=== PATIENT | female | born 1935 | race Caucasian/White ===

== ENCOUNTER 2016-09-18 20:01 | Inpatient (IN) | payer OTHER, MEDICARE ==
[~2016-09-18] VITALS: Ht 152.4 cm; Wt 71.2 kg
[~2016-09-18 20:01] MED LIST: AMBIEN5 M1 PO; AMITRIPTYLINE H10 M2 PO; ATORVASTATIN CA20 MG PO; AZITHROMYCIN250 MG PO; BENICAR HCT 12.1 TAB PO; BONIVA150 M1 PO; CHILDREN'S ASPI81 M1 PO; CIPRO500 M1 PO; ESZOPICLONE2 MG PO; FLAGYL500 MG PO; METFORMIN500 MG PO; MOBIC7.5 M1 PO; OS-CAL 500 + D1 TAB PO; ROBAXIN-750750 M1 PO; TYLENOL WITH C1 EACH PO; ULTRAM50 M1 PO; VITAMIN B121000 MCG PO; ZOLPIDEM TART5 MG PO
--- NOTE | 2016-09-18 21:37 | ED GI/GU/ABDOMINAL COMPLAINT ---
History of Present Illness General Chief Complaint: Abdominal Pain/Flank Pain Stated Complaint: ABD PAIN, VOMITING, DIARRHEA PER PT Source: patient, family, old records Exam Limitations: no limitations Vital Signs & Intake/Output Vital Signs & Intake/Output Vital Signs Date Time Temp Pulse Resp B/P B/P Pulse O2 O2 Flow FiO2 Mean Ox Delivery Rate 09/18 2242 98.6 88 17 128/68 94 Room Air 09/18 2006 98.8 92 16 130/70 95 Room Air ED Intake and Output 09/19 0000 09/18 1200 Intake Total 1000 Output Total Balance 1000 Intake, IV 1000 Patient 157 lb Weight Weight Reported by Patient Measurement Method Allergies Coded Allergies: NO KNOWN ALLERGIES (10/28/15) Reconcile Medications Amitriptyline HCl 10 MG TABLET 1 TAB PO QHS SLEEP (Reported) Aspirin (Children's Aspirin) 81 MG TAB.CHEW 1 TAB PO DAILY HEART/BLOOD ( Reported) Atorvastatin Calcium 20 MG TABLET 1 TAB PO DAILY CHOLESTEROL (Reported) Calcium Carbonate/Vitamin D3 (Os-Yinka 500+D3 Caplet) (Unknown Strength) TABLET (Unknown Dose) PO BID SUPPLEMENT (Reported) Cyanocobalamin (Vitamin B-12) 1,000 MCG TABLET 2 TAB PO DAILY SUPPLEMENT ( Reported) Gabapentin 300 MG CAPSULE 1 CAP PO TID NERVE PAIN (Reported) Ibandronate Sodium (Boniva) 150 MG TABLET 1 TAB PO Q30D BONES (Reported) on the same date with a full glass of water at least 30 minutes before first food or drink of the day; remain in an upright posi Metformin HCl 500 MG TABLET 1 TAB PO BID DM (Reported) Olmesartan/Hydrochlorothiazide (Benicar Hct 20-12.5 MG Tablet) 20 MG-12.5 MG TABLET 1 TAB PO DAILY BP (Reported) Tramadol HCl (Ultram) 50 MG TABLET 1 TAB PO Q6P PAIN (Reported) Zolpidem Tartrate (Ambien) 5 MG TABLET 1 TAB PO QPM SLEEP (Reported) Triage Note: PT TO ED FOR N/V/D X 2 HOURS. Triage Nurses Notes Reviewed? yes LMP (ages 10-50): post menopausal ? n Is pt currently ? No Onset: Last week Duration: day(s):, constant, continues in ED, getting worse Timing: recent history Quality/Severity: burning, moderate, vomiting Location: epigastric Radiation: no radiation Activities at Onset: none Prior Abdominal Problems: none Past Sexual History: Unobtainable at this time Modifying Factors: Worsens With: eating. Associated Symptoms: abdominal pain, diarrhea, loss of appetite, nausea/vomiting , weakness HPI: 4 days prior to admission patient developed wheezing with nonproductive cough decreased appetite increasing fatigue. 2 hours prior to admission patient developed chills nausea vomiting frequent loose watery stools. There's been no fever chest pain shortness of breath headache dysuria rash bleeding. Past History Travel History Traveled to [place] past 21 day No Medical History Any Pertinent Medical History? see below for history Cardiovascular: hypertension, hyperlipidemia Gastrointestinal: diverticulitis Hepatic: cholelithiasis Endocrine: diabetes History of MRSA: No History of VRE: No History of CDIFF: No Surgical History Surgical History: cholecystectomy Psychosocial History Who do you live with Son Services at Home None What is your primary language Uzbek Tobacco Use: Never used ETOH Use: denies use Illicit Drug Use: denies illicit drug use Family History Family History, If Any: BROTHER FH: diabetes mellitus MOTHER FH: leukemia Hx Contributory? No Review of Systems Review of Systems Constitutional: Reports: see HPI, chills, malaise, weakness. EENTM: Reports: no symptoms. Respiratory: Reports: see HPI, cough, wheezing. Cardiovascular: Reports: no symptoms. GI: Reports: see HPI, abdominal pain, diarrhea, nausea, vomiting. Genitourinary: Reports: no symptoms. Musculoskeletal: Reports: no symptoms. Skin: Reports: no symptoms. Neurological/Psychological: Reports: no symptoms. Hematologic/Endocrine: Reports: no symptoms. Immunologic/Allergic: Reports: no symptoms. All Other Systems: Reviewed and Negative Physical Exam Physical Exam General Appearance: well developed/nourished, alert, awake, anxious, moderate distress, obese Head: atraumatic, normal appearance Eyes: Bilateral: normal appearance, PERRL, EOMI, normal inspection. Ears, Nose, Throat, Mouth: hearing grossly normal, moist mucous membrane Neck: normal inspection, supple, full range of motion, normal alignment Respiratory: chest non-tender, no respiratory distress, quiet respiration, decreased breath sounds Cardiovascular: regular rate/rhythm, normal peripheral pulses, norml femoral pulses equa Peripheral Pulses: 4+ carotid (R), 4+ carotid (L) Gastrointestinal: soft, non-tender, no organomegaly, abnormal bowel sounds Back: normal inspection, normal range of motion Extremities: normal range of motion, no ligament instability Neurologic/Psych: no motor/sensory deficits, awake, alert, oriented x 3, normal gait, normal mood/affect, fashion artist II-XII nml as tested Skin: intact, normal color, warm/dry Core Measures ACS in differential dx? No Severe Sepsis Present: No Septic Shock Present: No Progress Differential Diagnosis: diverticulitis, gastritis, SBO, UTI/pyelo Plan of Care: Orders Procedure Date/time Status Nothing by Mouth 09/19 B Active CBC WITHOUT DIFFERENTIAL 09/19 06 Active BASIC ELECTROLYTES PLUS BUN&CR 09/19 06 Active Regular Diet 09/18 B Complete TRC EVALUATION (GEN) 09/18 2349 Active Pathway - chart 09/18 2349 Active House Staff 09/18 2349 Active RAPID VIRAL INFLUENZA A 09/18 2349 Active CULTURE,STOOL 09/18 2349 Active STREP PNEUMO URINARY ANTIGEN 09/18 2349 Complete LEGIONELLA URINARY ANTIGEN 09/18 2349 Complete LOWER RESPIRATORY CULTURE 09/18 2349 Active C.DIFFICILE 09/18 2349 Active LACTIC ACID 09/18 2344 Active Add-on Test (ER Only) 09/18 2326 Active EKG 09/18 2309 Active Patient Data 09/18 2256 Active Add-on Test (ER Only) 09/18 2248 Active BLOOD CULTURE 09/18 2248 Active CULTURE,URINE 09/18 2225 Active OXYGEN SETUP (GEN) 09/18 221 Active Saline Lock 09/18 221 Active Admit to inpatient 09/18 2216 Active Vital Signs 09/18 221 Active Activity/Ambulation 09/18 221 Active Code Status 09/18 2216 Active TROPONIN LEVEL 09/18 2131 Complete Intake & Output 09/18 210 Active URINALYSIS 09/18 2044 Complete BLOOD CULTURE 09/19 2043 Active LIPASE 09/19 2043 Complete LACTIC ACID 09/19 2043 Complete COMPREHENSIVE METABOLIC PANEL 09/19 2043 Complete CBC WITHOUT DIFFERENTIAL 09/19 2043 Complete EKG 09/18 2004 Active VTE Mechanical Prophylaxis 09/18 UNK Active Vital Signs 09/18 UNK Active Hemoccult 09/18 UNK Active FingerStick- Glucose 09/18 UNK Active Current Medications Sig/Camila Start time Last Medication Dose Stop Time Status Admin Hydrochlorothiazide 12.5 MG DAILY 09/20 1000 AC (Hydrodiuril) Amitriptyline HCl 10 MG AT BEDTIME 09/19 2200 AC (Elavil 10 MG Tablet) Aspirin 81 MG DAILY 09/19 1000 AC (Aspirin) Atorvastatin Calcium 20 MG DAILY 09/19 1000 AC (Lipitor) Azithromycin 500 MG DAILY 09/19 1000 UNVr (Zithromax) Sodium Chloride 250 ML (Normal Saline 0.9%) Ceftriaxone Sodium 1,000 MG DAILY 09/19 1000 UNVr (Rocephin) Losartan Potassium 50 MG DAILY 09/19 1000 AC (Cozaar) Pantoprazole Sodium 40 MG DAILY 09/19 1000 AC (Protonix) Heparin Sodium 5,000 UNIT Q8 09/19 0600 AC (Porcine) Gabapentin 300 MG TID 09/18 2359 AC (Neurontin) Insulin Human Regular 0 Q6 09/18 2359 AC (NovoLIN R) Acetaminophen 650 MG Q6P PRN 09/18 2345 AC (Tylenol) Dextrose/Sodium 1,000 ML ONCE ONE 09/18 2345 AC Chloride 09/19 1304 (D5W-1/2 Normal Saline 1000ML) Ibuprofen 600 MG Q6P PRN 09/18 2345 AC (Motrin) Morphine Sulfate 1 MG Q6P PRN 09/18 2345 AC (Morphine) Ondansetron HCl 4 MG Q6P PRN 09/18 2345 AC (Zofran) Laboratory Tests 09/18/16 2346: Lactic Acid Pending 09/18/16 2309: Troponin I Cancelled 09/18/16 2225: Urine Color YEL, Urine Clarity CLEAR, Urine pH 6.0, Ur Specific [place] 1.015, Urine Protein TRACE H, Urine Ketones NEG, Urine Nitrite NEG, Urine Bilirubin NEG, Urine Urobilinogen 0.2, Ur Leukocyte Esterase NEG, Ur Microscopic SEDIMENT EXAMINED, Ur Epithelial Cells RARE, Urine Hemoglobin NEG, Urine Glucose NEG 09/18/16 2131: Anion Gap 17 H, Estimated GFR 36 L, BUN/Creatinine Ratio 30.0 H, Glucose 160 H, Lactic Acid 2.0, Calcium 8.9, Total Bilirubin 0.5, AST 25, ALT 27, Alkaline Phosphatase 59, Troponin I < 0.01, Total Protein 7.9, Albumin 4.6, Globulin 3.3, Albumin/Globulin Ratio 1.4, Lipase 452 H, CBC w Diff MAN DIFF ORDERED, RBC 3.83 L, MCV 89.7, MCH 30.2, RDW 14.1, MPV 8.2, Gran % 92.1 H, Lymphocytes % 3.2 L, Monocytes % 4.2, Eosinophils % 0.2, Basophils % 0.3, Absolute Granulocytes 6.6 H, Segmented Neutrophils 73, Band Neutrophils 18 H, Absolute Lymphocytes 0.2 L , Lymphocytes 6 L, Monocytes 2, Absolute Monocytes 0.3, Absolute Eosinophils 0, Basophils 1, Absolute Basophils 0, Platelet Estimate ADEQUATE, Normocytic RBCs VERIFIED, Normochromic RBCs VERIFIED, PUBS MCHC 33.7 Microbiology 09/18 2348 URINE ROUT: Legionella Antigen - CAN Cancelled: COMBINED WITH [id number] 09/18 2348 LOWER RESP: Respiratory Culture - ORD 09/18 2348 LOWER RESP: Gram Stain - ORD 09/18 2348 NASOPHARYN: Influenza Virus A & B Rapid Smear - ORD 09/18 2348 STOOL: Clostridium difficile Toxin A & B - ORD 09/18 2348 STOOL: Stool Culture - ORD 09/18 2254 BLOOD: Blood Culture - RECD 09/18 2224 URINE ROUT: Legionella Antigen - COMP 09/18 2224 URINE ROUT: Streptococcus pneumoniae Antigen (M - COMP 09/18 2224 URINE ROUT: Urine Culture - RECD 09/18 2130 BLOOD: Blood Culture - RECD Diagnostic Imaging: Viewed by Me: Radiology Read. Discussed w/RAD: Radiology Read. Radiology Impression: no acute abnormality CXR Impression: right lower lobe infiltrate Initial ED EKG: normal axis, normal intervals, normal p-waves, normal QRS complex, normal sinus rhythm, no ST T wave changes Prior EKG: unchanged Rhythm Strip: normal sinus rhythm Departure Departure Disposition: STILL A PATIENT Condition: Stable Clinical Impression Primary Impression: Pneumonia Qualifiers: Pneumonia type: due to unspecified organism Laterality: right Lung location: lower lobe of lung Qualified Code: J18.1 - Lobar pneumonia, unspecified organism Secondary Impressions: Elevated lipase, Nausea, vomiting, and diarrhea Referrals: SHARMILA NICHOLSON MD (PCP/Family) Departure Forms: Customer Survey General Discharge Information Admission Note Spoke With: SHARMILA NICHOLSON MD Documentation of Exam: Documentation of any treatments & extenuating circumstances including Concerns Regarding Discharge (functional status, medication knowledge or non-compliance, living conditions, etc.) that warrant an admission rather than observation: IV antibiotics IV fluid IV antiemetic advance diet serial lab exam medication adjustment continuing care discharge planning
--- NOTE | 2016-09-18 21:40 | RADIOLOGY REPORT ---
Indication: Nausea vomiting EXAMINATION: 2 views of the abdomen Flat and upright imaging. There is no free air. The bowel pattern is nonobstructing. IMPRESSION: No free air or obstruction. A chest x-rays also ordered on this patient. Recommend patient return for formal chest x-ray
[2016-09-18 21:43] LABS: ABSOLUTE BASOPHIL COUNT 0 /CUMM (0.0-0.2); ABSOLUTE EOSINOPHIL COUNT 0 /CUMM (0.0-0.7); ABSOLUTE GRANULOCYTE CT 6.6 /CUMM (1.4-6.5); ABSOLUTE LYMPH COUNT 0.2 /CUMM (1.2-3.4); ABSOLUTE MONOCYTE COUNT 0.3 /CUMM (0.10-0.60); BASOPHIL % 0.3 % (0.0-2.0); EOSINOPHIL % 0.2 % (0-5); GRANULOCYTE % 92.1 % (42.2-75.2); HEMATOCRIT 34.3 % (37-47); MEAN CORPUSCULAR HGB 30.2 PG (27.0-31.0); MEAN CORPUSCULAR HGB CONC 33.7 G/DL (33.0-37.0); MEAN CORPUSCULAR VOLUME 89.7 FL (81.0-99.0); MEAN PLATELET VOLUME 8.2 FL (7.4-10.4); PLATELET COUNT 221 /CUMM (130-400); RBC DISTRIBUTION WIDTH 14.1 % (11.5-14.5); RED BLOOD CELL CT 3.83 /CUMM (4.20-5.40); WHITE BLOOD CELL COUNT 7.2 /CUMM (4.8-10.8)
--- NOTE | 2016-09-18 21:52 | RADIOLOGY REPORT ---
EXAMINATION: XR CHEST CLINICAL INFORMATION: Wheezing, chills COMPARISON: 04/17/2016 TECHNIQUE: 2 views of the chest were obtained. FINDINGS: Exam demonstrating opacity at the right base.... Density here previously. This may be an acute infiltrate superimposed on chronic change. Left lung is grossly clear. Heart size is normal. IMPRESSION: Vague opacity at the right base may be an infiltrate. Superimposed on chronic change. Follow-up films recommended after treatment to assess for baseline.
[2016-09-18] MEDS ORDERED: ATORVASTATIN CA20 M1 PO (22:01)
[2016-09-18] MEDS ORDERED: VITAMIN B-121000 MC3 PO (22:02)
[2016-09-18] MEDS ORDERED: OS-CAL 500+D31 EAC1 PO (22:02)
[2016-09-18] MEDS ORDERED: METFORMIN HCL500 M3 PO (22:02)
[2016-09-18] MEDS ORDERED: BENICAR HCT 201 EACH PO (22:03)
[2016-09-18] MEDS ORDERED: GABAPENTIN300 M2 PO (22:04)
--- NOTE | 2016-09-18 22:56 | History & Physical ---
GENARO CARCAMO,GEOVANNY 09/18/16 5236: General Information and HPI Source of Information: patient, family Exam Limitations: language barrier History of Present Illness: Ms. Bui is a 81-year-old lady with a PMH significant for NIDDM, CKD, HTN, HLD , and diverticulitis (2010), who presents with abdominal pain with persistent NBNB emesis and watery diarrhea since 4-5PM on the day of admission. She was in her usual state until this afternoon when she was working in the garden when she suddenly developed nausea shortly after lunch. Patient had about 7-8 epsiodes of vomiting in 2 hours. Lunch consisted of chicken soup and toast which was refridgeated for a few days. Multiple family members had the same food but no issues. Per the family at bedside patient also has had a chronic cough productive of white or yellow sputum at baseline with wheezing recently. She was seen by PCP about a week ago and no concerns were noted at that time. Denies any fever, chills, urinary sxs, recent travel/illness/sick contact. [place] she lives with her son and his family. Denies any tobacco/alcohol/illicit drug use. Ambulates without any walking aids and independent with ADLs. FH significant for leukemia in mother. PCP - Dr. Tim GI - Dr. Betancourt Full code. Allergies/Medications Allergies: Coded Allergies: NO KNOWN ALLERGIES (10/28/15) Home Med list Amitriptyline HCl 10 MG TABLET 1 TAB PO QHS SLEEP (Reported) Aspirin (Children's Aspirin) 81 MG TAB.CHEW 1 TAB PO DAILY HEART/BLOOD ( Reported) Atorvastatin Calcium 20 MG TABLET 1 TAB PO DAILY CHOLESTEROL (Reported) Calcium Carbonate/Vitamin D3 (Os-Yinka 500+D3 Caplet) (Unknown Strength) TABLET (Unknown Dose) PO BID SUPPLEMENT (Reported) Cyanocobalamin (Vitamin B-12) 1,000 MCG TABLET 2 TAB PO DAILY SUPPLEMENT ( Reported) Gabapentin 300 MG CAPSULE 1 CAP PO TID NERVE PAIN (Reported) Ibandronate Sodium (Boniva) 150 MG TABLET 1 TAB PO Q30D BONES (Reported) on the same date with a full glass of water at least 30 minutes before first food or drink of the day; remain in an upright posi Metformin HCl 500 MG TABLET 1 TAB PO BID DM (Reported) Olmesartan/Hydrochlorothiazide (Benicar Hct 20-12.5 MG Tablet) 20 MG-12.5 MG TABLET 1 TAB PO DAILY BP (Reported) Tramadol HCl (Ultram) 50 MG TABLET 1 TAB PO Q6P PAIN (Reported) Zolpidem Tartrate (Ambien) 5 MG TABLET 1 TAB PO QPM SLEEP (Reported) Past History Travel History Traveled to [place] past 21 day No Medical History Cardiovascular: hypertension, hyperlipidemia Gastrointestinal: diverticulitis Hepatic: cholelithiasis Endocrine: diabetes History of MRSA: No History of VRE: No History of CDIFF: No Surgical History Surgical History: cholecystectomy Past Family/Social History Family History Relations & Conditions if any BROTHER FH: diabetes mellitus MOTHER FH: leukemia Psychosocial History Services at Home: None ETOH Use: denies use Illicit Drug Use: denies illicit drug use Review of Systems Review of Systems Constitutional: Reports: see HPI. Exam & Diagnostic Data Last 24 Hrs of Vital Signs/I&O Vital Signs Date Time Temp Pulse Resp B/P B/P Pulse O2 O2 Flow FiO2 Mean Ox Delivery Rate 09/18 2242 98.6 88 17 128/68 94 Room Air 09/18 2006 98.8 92 16 130/70 95 Room Air Physical Exam General Appearance Alert, Oriented X3, Cooperative, No Acute Distress Skin No Rashes, No Breakdown, No Significant Lesion HEENT Atraumatic, PERRLA, EOMI, Dry MM Neck Supple, No JVD, No thryomegaly Cardiovascular Regular Rate, Normal S1, Normal S2, Systolic murmurs in the aortic Lungs Wheezing Abdomen Soft, Decreased BS, Diffuse tenderness Neurological Normal Speech, Sensation Intact, Cranial Nerves 3-12 NL Extremities No Clubbing, No Cyanosis, No Edema, Normal Pulses, No Tenderness/ Swelling Vascular Normal Pulses, Pulses Symmetrical Last 24 Hrs of Labs/Facundo: Laboratory Tests 09/18/169: Troponin I Cancelled 09/18/165: Urine Color YEL, Urine Clarity CLEAR, Urine pH 6.0, Ur Specific [place] 1.015, Urine Protein TRACE H, Urine Ketones NEG, Urine Nitrite NEG, Urine Bilirubin NEG, Urine Urobilinogen 0.2, Ur Leukocyte Esterase NEG, Ur Microscopic SEDIMENT EXAMINED, Ur Epithelial Cells RARE, Urine Hemoglobin NEG, Urine Glucose NEG 09/18/16 2131: Anion Gap 17 H, Estimated GFR 36 L, BUN/Creatinine Ratio 30.0 H, Glucose 160 H, Lactic Acid 2.0, Calcium 8.9, Total Bilirubin 0.5, AST 25, ALT 27, Alkaline Phosphatase 59, Troponin I Pending, Total Protein 7.9, Albumin 4.6, Globulin 3.3 , Albumin/Globulin Ratio 1.4, Lipase 452 H, CBC w Diff MAN DIFF ORDERED, RBC 3.83 L, MCV 89.7, MCH 30.2, RDW 14.1, MPV 8.2, Gran % 92.1 H, Lymphocytes % 3.2 L, Monocytes % 4.2, Eosinophils % 0.2, Basophils % 0.3, Absolute Granulocytes 6.6 H, Segmented Neutrophils 73, Band Neutrophils 18 H, Absolute Lymphocytes 0.2 L, Lymphocytes 6 L, Monocytes 2, Absolute Monocytes 0.3, Absolute Eosinophils 0, Basophils 1, Absolute Basophils 0, Platelet Estimate ADEQUATE, Normocytic RBCs VERIFIED, Normochromic RBCs VERIFIED, PUBS MCHC 33.7 Microbiology 09/18 2254 BLOOD: Blood Culture - RECD 09/18 2224 URINE ROUT: Urine Culture - RECD 09/18 2130 BLOOD: Blood Culture - RECD Diagnostic Data EKG Results NSR CXR Results Vague opacity at the right base may be an infiltrate. Superimposed on chronic change. Follow-up films recommended after treatment to assess for baseline. Assessment/Plan Assessment: Ms. Bui is a 81-year-old lady with a PMH significant for DM, HTN, HLD, and acute diverticulitis (2010), who presents with abdominal pain with persistent NBNB emesis and watery diarrhea since 4-5PM on the day of admission. # Abdominal pain with n/v Most likely 2/2 gastroenteritis based on the clinical presentation. AXR shows no free air or obstruction. * Admit to GM service * Vitals per protocol * Keep NPO for now with gentle IV hydration * Nausea control with Zofran or Reglan * CT abdomen/pelvis to r/o inflammatory disease # Acute on CKD Most likely due to dehydration in the setting of profuse emesis * IV resuscitation * Recheck BEP in the morning # Possible PNA CXR shows vague opacity at the right base may be an infiltrate. Superimposed on chronic change. Although patient reports chronic producitve cough she has no signs of SIRS. There is a bandemia w/o leukocytosis however. So far CXR is inconsistent with her clinical presentation and thus we will cont to monitor for now. * Received 1 dose of IV Doxy and CTX in ED * Watch off antibiotics * Keep monitoring for signs of infection # DM * Novolin SSI with accuchecks * Diabetic diet # HTN/HLD * Resume home meds - NPO - Mild pain pathway - DVTppx with SQH - Full code. As Ranked By This Provider Problem List: 1. NIDDM 2. Hypercapnia 3. Opiate or related narcotic overdose 4. Sigmoid diverticulitis 5. Cervical arthritis 6. Neck pain Core Measures/Miscellaneous Acute Coronary Syndrome ACS Diagnosis: No Cerebrovascular Accident CVA/TIA Diagnosis: No Congestive Heart Failure CHF Diagnosis: No Venous Thromboembolism VTE Risk Factors: Age > 40 No [facility] VTE prophylaxis d/t: No contraindications No VTE Pharm Prophylaxis d/t: No contraindications VTE Diagnosis: No VTE Type: NONE VTE Confirmed by (Test): NONE Severe Sepsis Severe Sepsis Present: No Septic Shock Septic Shock Present: No Miscellaneous Documentation Attending Case Discussed With: SHARMILA TIM MD Primary Care Physician: SHARMILA TIM MD Patient sees these Specialists HPI Level of Patient Care: General Medicine JAVIER HANSEN MD 09/18/16 2342: Resident Review Statement Resident Statement: examined this patient, discussed with agriculture intern Other Findings: 81-year-old lady who is medical issues include hypertension, hyperlipidemia, diabetes mellitus, diverticulosis presents to the emergency room with a 10 hour history of nausea vomiting and diarrhea. Patient states that after lunch this afternoon which was around 3 AM she had about 7-8 bouts of nonbloody vomiting after the vomiting resolved she also had a couple bouts of nonbloody diarrhea. She also complains of some abdominal tenderness. States that she has chronic postnasal drip and has been having some yellow sputum for the last week or so. Denies any fevers muscle aches. However does admit to having some chills. Denies any chest pain, shortness of breath. Her vital signs are stable Labs are significant for 18 bands, anion gap of 17, BUN 42, creatinine 1.4, lipase 452 Physical exam reveals vital signs within normal limits, lung exam within normal limits, neuro exam is intact; cardiac exam reveals normal rate and rhythm regular, 3/6 systolic ejection murmur right upper sternal border with mild radiation to the carotids, abdominal exam shows bowel sounds which are present, tenderness to deep palpation diffusely, no organomegaly Abdominal x-ray is negative, chest x-ray shows a vague opacity at the right base which could likely be an infiltrate Assessment- 1. Gastroenteritis with nausea, vomiting and diarrhea my: Infectious versus noninfectious versus recurrence of diverticulitis 2. Positive anion gap 3. Bandemia 4. Elevated lipase, questionable pancreatitis however she has had a cholecystectomy in the past, does not have a significant history of alcohol or any other risk factors 5. Hypertension 6. Hyperlipidemia 7. Diabetes mellitus 8. NATE on CKD Plan- GEN med admission Vitals per protocol Nothing by mouth for now Gentle fluid hydration IV Zofran when necessary for nausea Pain pathway DVT prophylaxis with subcutaneous heparin Nothing by mouth insulin scale Continue other home meds CAT scan of the abdomen and pelvis without contrast Panculture Full code
--- NOTE | 2016-09-19 00:07 | CT SCAN REPORT ---
EXAMINATION: CT ABDOMEN AND PELVIS WITHOUT CONTRAST CLINICAL INFORMATION: History of diverticulosis. Evaluate for diverticulitis versus colitis versus pancreatitis. COMPARISON: CT scan of abdomen and pelvis 10/23/2015. TECHNIQUE: Multidetector volumetric imaging was performed from the superior aspect of the liver through the pubic symphysis. Sagittal and coronal reformatted images were obtained on the technologist's workstation. DLP: 414.19 mGy-cm FINDINGS: LUNG BASES: There is bibasilar subsegmental atelectasis. No pleural or pericardial effusion. The heart is enlarged. LIVER, GALLBLADDER, AND BILIARY TREE: The unenhanced liver attenuation is homogeneous and there is no evidence of a discrete hepatic parenchymal mass. The gallbladder is surgically absent and there are numerous surgical clips within the gallbladder fossa. No evidence of intrahepatic or extrahepatic biliary ductal dilatation. PANCREAS: Unremarkable. SPLEEN: Unremarkable. ADRENAL GLANDS: Unremarkable. KIDNEYS AND URETERS: Kidneys are symmetric in size and there is no abnormal perinephric inflammation or collection. No hydroureteronephrosis. No nephrolithiasis and no abnormal mass or calcifications visualized along the expected course of the right or left ureters. BLADDER: Unremarkable. GASTROINTESTINAL TRACT: There is a small hiatal hernia. The stomach and small bowel are otherwise unremarkable. There is slightly increased attenuation within the mesenteric fat with a few scattered small nonspecific mesenteric lymph nodes for instance best illustrated on axial image 43 of 91 series 2. There is no free intraperitoneal air or fluid. The appendix is normal. Numerous diverticula are visualized primarily within the sigmoid colon. No evidence of acute diverticulitis. ABDOMINAL WALL: No significant hernia is appreciated. LYMPH NODES: No pathologically enlarged mesenteric or retroperitoneal lymph nodes. VASCULAR: Calcified atheromatous plaque is visualized within the abdominal aorta and iliac vessels. The unenhanced inferior vena cava is unremarkable. PELVIC VISCERA: The uterus is surgically absent. No worrisome adnexal mass. OSSEOUS STRUCTURES: There is no worrisome lytic or blastic osseous lesion. There is advanced multilevel degenerative spondylosis of the lumbar spine with loss of intervertebral disc height, sclerotic degenerative endplate changes, and intervertebral vacuum disc phenomenon at multiple levels. Grade 1 anterolisthesis of L5 on S1 related to advanced facet degenerative changes at this level. Grossly no evidence of canal compromised. IMPRESSION: There is regionally increased attenuation within the mesenteric fat which is associated with a few scattered nonspecific mesenteric lymph nodes. 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 Otherwise there is no discrete abdominal finding to provide an expiration for the patient's abdominal pain. No evidence of acute diverticulitis. The pancreas is normal. No free intraperitoneal air or fluid.
[2016-09-19 00:42] VITALS: BP 110/50
[2016-09-19 06:33] VITALS: BP 110/56
--- NOTE | 2016-09-19 07:13 | PN- Housestaff ---
Subjective Follow-up For: Vomiting Subjective: Seen and examined patient. at bedside. Nursing staff present to help with translation. Patient stated that her nausea, vomiting has subsided since being admitted to the hospital. Continues to have some mild diffuse abdominal pain. Denies any diarrhea, fever, chills, shortness of breath. Review of Systems Constitutional: Denies: chills, diaphoresis, fever, malaise, weakness, unexplained weight loss. Respiratory: Denies: cough, hemoptysis, orthopnea, short of breath, sputum production, stridor, wheezing. Gastrointestinal: Denies: abdominal pain, bloating, constipation, diarrhea, distention, bowel incontinence, melena, nausea, bloody stool, changes in stool, vomiting, steatorrhea. Objective Last 24 Hrs of Vital Signs/I&O Vital Signs Date Time Temp Pulse Resp B/P B/P Pulse O2 O2 Flow FiO2 Mean Ox Delivery Rate 09/19 0914 Room Air Room Air 09/19 0912 96 Room Air 09/19 0800 Room Air 09/19 0633 98.5 76 20 110/56 94 Room Air 09/19 0221 Room Air 09/19 0042 99.1 84 18 110/50 91 Room Air 09/18 2243 98.6 88 17 128/68 94 Room Air 09/18 2007 98.8 92 16 130/70 95 Room Air Intake & Output 09/19 1600 09/19 0800 09/19 0000 Intake Total 600 1000 Output Total 275 Balance 325 1000 Intake, IV 600 1000 Output, Urine 275 Patient 157 lb 157 lb Weight Weight Reported by Patient Reported by Patient Measurement Method Physical Exam General Appearance: Alert, Oriented X3, Cooperative, No Acute Distress Cardiovascular: Regular Rate, Normal S1, Normal S2 Lungs: Normal Air Movement Abdomen: Normal Bowel Sounds, Soft, DIFFUSE MILD TENDERNESS TO PALPATION Current Medications: Current Medications Sig/Camila Start time Last Medication Dose Route Stop Time Status Admin Acetaminophen 650 MG Q6P PRN 09/18 2345 AC PO Amitriptyline HCl 10 MG AT BEDTIME 09/19 2199 AC PO Aspirin 81 MG DAILY 09/19 1000 AC 09/19 PO 1019 Atorvastatin Calcium 20 MG DAILY 09/19 1000 AC 09/19 PO 1019 Azithromycin 500 MG 09/19 AC Sodium Chloride 250 ML IV Ceftriaxone Sodium 1,000 MG 09/19 AC IV Ceftriaxone Sodium 0 .STK-MED ONE 09/18 2232 DC .ROUTE Ceftriaxone Sodium 1,000 MG ONCE ONE 09/18 2214 DC 09/18 IV 09/18 221 2311 Dextrose/Sodium 1,000 ML ONCE ONE 09/18 2345 DC 09/19 Chloride IV 09/19 1304 0126 Doxycycline Hyclate 100 MG ONCE ONE 09/18 2214 DC 09/18 Sodium Chloride 100 ML IV 09/18 2320 2311 Famotidine 0 .STK-MED ONE 09/18 2144 DC IV Famotidine 20 MG ONCE ONE 09/18 2044 DC 09/18 IV 09/18 2045 214 Gabapentin 300 MG TID 09/18 2359 AC 09/19 PO 1019 Heparin Sodium 5,000 UNIT Q8 09/19 0600 AC 09/19 (Porcine) SC 1155 Hydrochlorothiazide 12.5 MG DAILY 09/20 1000 AC PO Ibuprofen 600 MG Q6P PRN 09/18 2345 AC PO Insulin Human Regular 4 UNITS .STK-MED ONE 09/19 012 DC IV 09/19 0122 Insulin Human Regular 0 Q6 09/18 2359 AC 09/19 SC 1155 Losartan Potassium 50 MG DAILY 09/19 1000 AC 09/19 PO 1019 Metoclopramide HCl 0 .STK-MED ONE 09/18 2144 DC .ROUTE Metoclopramide HCl 5 MG ONCE ONE 09/18 2044 DC 09/18 IV 09/18 2045 214 Morphine Sulfate 1 MG Q6P PRN 09/18 2344 AC IV Ondansetron HCl 4 MG Q6P PRN 09/18 234 AC IV Pantoprazole Sodium 40 MG DAILY 09/19 1000 AC 09/19 IV 1020 Sodium Chloride 1,000 ML BOLUS ONE 09/18 2044 DC 09/18 IV 09/19 2143 214 Last 24 Hrs of Lab/Facundo Results Last 24 Hrs of Labs/Mics: Laboratory Tests 09/19/16 0620: Anion Gap 12, Estimated GFR 40 L, BUN/Creatinine Ratio 29.2 H, CBC w Diff Pending, RBC 3.10 L, MCV 89.7, MCH 30.1, RDW 13.8, MPV 8.9, Gran % 80.7 H, Lymphocytes % 11.1 L, Monocytes % 6.1, Eosinophils % 1.9, Basophils % 0.2, Absolute Granulocytes 5.0, Absolute Lymphocytes 0.7 L, Absolute Monocytes 0.4, Absolute Eosinophils 0.1, Absolute Basophils 0, PUBS MCHC 33.5 09/18/16 2346: Lactic Acid 1.6 09/18/16 2309: Troponin I Cancelled 09/18/162224: Urine Color YEL, Urine Clarity CLEAR, Urine pH 6.0, Ur Specific [place] 1.015, Urine Protein TRACE H, Urine Ketones NEG, Urine Nitrite NEG, Urine Bilirubin NEG, Urine Urobilinogen 0.2, Ur Leukocyte Esterase NEG, Ur Microscopic SEDIMENT EXAMINED, Ur Epithelial Cells RARE, Urine Hemoglobin NEG, Urine Glucose NEG 09/18/162130: Anion Gap 17 H, Estimated GFR 36 L, BUN/Creatinine Ratio 30.0 H, Glucose 160 H, Lactic Acid 2.0, Calcium 8.9, Total Bilirubin 0.5, AST 25, ALT 27, Alkaline Phosphatase 59, Troponin I < 0.01, Total Protein 7.9, Albumin 4.6, Globulin 3.3, Albumin/Globulin Ratio 1.4, Lipase 452 H, CBC w Diff MAN DIFF ORDERED, RBC 3.83 L, MCV 89.7, MCH 30.2, RDW 14.1, MPV 8.2, Gran % 92.1 H, Lymphocytes % 3.2 L, Monocytes % 4.2, Eosinophils % 0.2, Basophils % 0.3, Absolute Granulocytes 6.6 H, Segmented Neutrophils 73, Band Neutrophils 18 H, Absolute Lymphocytes 0.2 L , Lymphocytes 6 L, Monocytes 2, Absolute Monocytes 0.3, Absolute Eosinophils 0, Basophils 1, Absolute Basophils 0, Platelet Estimate ADEQUATE, Normocytic RBCs VERIFIED, Normochromic RBCs VERIFIED, PUBS MCHC 33.7 Microbiology 09/19 0125 NASOPHARYN: Influenza Virus A & B Rapid Smear - COMP 09/18 2348 URINE ROUT: Legionella Antigen - CAN Cancelled: COMBINED WITH [id number] 09/18 2348 LOWER RESP: Respiratory Culture - COLB 09/18 2348 LOWER RESP: Gram Stain - COLB 09/18 2348 STOOL: Clostridium difficile Toxin A & B - COLB 09/18 2348 STOOL: Stool Culture - COLB 09/18 2254 BLOOD: Blood Culture - RES 09/18 2224 URINE ROUT: Legionella Antigen - COMP 09/18 2224 URINE ROUT: Streptococcus pneumoniae Antigen (M - COMP 09/18 2224 URINE ROUT: Urine Culture - RES 09/18 2130 BLOOD: Blood Culture - RES Assessment/Plan Assessment: 81-year-old woman with a PMH significant for DM, HTN, HLD, and acute diverticulitis (2010), who presents with abdominal pain with emesis and watery diarrhea since 4-5PM on the day of admission. 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 and no evidence of acute diverticulitis or pancreatitis # Abdominal pain with n/v Most likely 2/2 gastroenteritis * Vitals per protocol * Will start on clear liquids advance as tolerated, will DC IV fluids once tolerating diet * Continue IV ceftriaxone consider discontinuing if clinically improved tommorrow * Nausea control with Zofran or Reglan # Acute on CKD Most likely due to dehydration in the setting of profuse emesis * IVF resuscitation * Recheck BEP in the morning # Possible PNA low suspicion for pna, no fevers, increased white count * Received 1 dose of IV Doxy and CTX in ED * Watch off antibiotics * Keep monitoring for signs of infection # DM * Novolin SSI with accuchecks * Diabetic diet # HTN/HLD * Continue hydrochlorothiazide, Cozaar, statin, aspirin Continue home meds of Elavil - Mild pain pathway - DVTppx with SQH - Full code. Problem List: 1. Nausea, vomiting, and diarrhea Pain Ratin Pain Location: abdomen Alt Method for Pain Treatment: Other(free text) Pain Goal: Pain 4 or less Pain Plan: current regimen Tomorrow's Labs & Rationales: cbc/bep
[2016-09-19 08:08] LABS: ABSOLUTE BASOPHIL COUNT 0 /CUMM (0.0-0.2); ABSOLUTE EOSINOPHIL COUNT 0.1 /CUMM (0.0-0.7); ABSOLUTE LYMPH COUNT 0.7 /CUMM (1.2-3.4); ABSOLUTE MONOCYTE COUNT 0.4 /CUMM (0.10-0.60); BASOPHIL % 0.2 % (0.0-2.0); EOSINOPHIL % 1.9 % (0-5); GRANULOCYTE % 80.7 % (42.2-75.2); MEAN CORPUSCULAR HGB 30.1 PG (27.0-31.0); MEAN CORPUSCULAR HGB CONC 33.5 G/DL (33.0-37.0); MEAN CORPUSCULAR VOLUME 89.7 FL (81.0-99.0); MEAN PLATELET VOLUME 8.9 FL (7.4-10.4); PLATELET COUNT 206 /CUMM (130-400); RBC DISTRIBUTION WIDTH 13.8 % (11.5-14.5); WHITE BLOOD CELL COUNT 6.3 /CUMM (4.8-10.8)
[2016-09-19 08:48] LABS: HEMATOCRIT 27.8 % (37-47)
[2016-09-19 14:09] VITALS: BP 108/64
--- NOTE | 2016-09-19 19:20 | PN- Att Addend ---
Attending Addendum Attending Brief Note Patient feeling better. Son at the bedside states that her nausea and vomiting are gone no diarrhea today so far, still some abdominal discomfort and labs noted and discussed with the cook house supervisor was started liquid diet and slowly progress. Monitor her labs checked her cultures monitor her temp still of antibiotics. if stable in the morning then start disposition plans. Intake & Output 09/19 1600 09/19 0800 09/19 0000 09/18 1600 09/18 0800 09/18 0000 Intake Total 2200 706 9098 Output Total 275 Balance 3947 527 3629 Intake, IV 792 155 1389 Intake, Oral 500 Output, Urine 275 Patient 157 lb 157 lb Weight Weight Reported by Patient Reported by Patient Measurement Method Current Medications Sig/Camila Start time Last Medication Dose Route Stop Time Status Admin Acetaminophen 650 MG Q6P PRN 09/18 2345 AC PO Amitriptyline HCl 10 MG AT BEDTIME 09/19 220 AC PO Aspirin 81 MG DAILY 09/19 1000 AC 09/19 PO 1019 Atorvastatin Calcium 20 MG DAILY 09/19 1000 AC 09/19 PO 1019 Azithromycin 500 MG 09/19 CAN Sodium Chloride 250 ML IV Ceftriaxone Sodium 1,000 MG 09/19 2200 AC IV Ceftriaxone Sodium 0 .STK-MED ONE 09/18 2233 DC .ROUTE Ceftriaxone Sodium 1,000 MG ONCE ONE 09/18 221 DC 09/18 IV 09/18 221 2311 Dextrose/Sodium 1,000 ML ONCE ONE 09/18 2345 DC 09/19 Chloride IV 09/19 1304 0126 Doxycycline Hyclate 100 MG ONCE ONE 09/18 2215 DC 09/18 Sodium Chloride 100 ML IV 09/18 2320 2311 Famotidine 0 .STK-MED ONE 09/18 2145 DC IV Famotidine 20 MG ONCE ONE 09/18 2045 DC 09/18 IV 09/18 2046 2148 Gabapentin 300 MG TID 09/18 2359 AC 09/19 PO 1716 Heparin Sodium 5,000 UNIT Q8 09/19 0600 AC 09/19 (Porcine) SC 1155 Hydrochlorothiazide 12.5 MG DAILY 09/20 1000 AC PO Ibuprofen 600 MG Q6P PRN 09/18 2345 AC PO Insulin Human Regular 0 TIDAC/HS 09/19 2100 AC SC Insulin Human Regular 2 UNITS .STK-MED ONE 09/19 0606 DC IV 09/19 0607 Insulin Human Regular 4 UNITS .STK-MED ONE 09/19 0121 DC IV 09/19 0122 Insulin Human Regular 0 Q6 09/18 2359 DC 09/19 SC 1155 Losartan Potassium 50 MG DAILY 09/19 1000 AC 09/19 PO 1019 Metoclopramide HCl 0 .STK-MED ONE 09/18 2144 DC .ROUTE Metoclopramide HCl 5 MG ONCE ONE 09/18 2044 DC 09/18 IV 09/18 2045 214 Morphine Sulfate 1 MG Q6P PRN 09/18 234 AC IV Ondansetron HCl 4 MG Q6P PRN 09/18 2345 AC IV Pantoprazole Sodium 40 MG DAILY 09/19 1000 AC 09/19 IV 1020 Patient Medication 1 ED .STK-MED ONE 09/19 1359 DC Teaching ED 09/19 1400 Sodium Chloride 1,000 ML BOLUS ONE 09/18 2044 DC 09/18 IV 09/18 Laboratory Tests 09/19/16 0620: Anion Gap 12, Estimated GFR 40 L, BUN/Creatinine Ratio 29.2 H, CBC w Diff NO MAN DIFF REQ, RBC 3.10 L, MCV 89.7, MCH 30.1, RDW 13.8, MPV 8.9, Gran % 80.7 H , Lymphocytes % 11.1 L, Monocytes % 6.1, Eosinophils % 1.9, Basophils % 0.2, Absolute Granulocytes 5.0, Absolute Lymphocytes 0.7 L, Absolute Monocytes 0.4, Absolute Eosinophils 0.1, Absolute Basophils 0, PUBS MCHC 33.5 09/18/16 2346: Lactic Acid 1.6 09/18/16 2309: Troponin I Cancelled 09/18/16 2225: Urine Color YEL, Urine Clarity CLEAR, Urine pH 6.0, Ur Specific [place] 1.015, Urine Protein TRACE H, Urine Ketones NEG, Urine Nitrite NEG, Urine Bilirubin NEG, Urine Urobilinogen 0.2, Ur Leukocyte Esterase NEG, Ur Microscopic SEDIMENT EXAMINED, Ur Epithelial Cells RARE, Urine Hemoglobin NEG, Urine Glucose NEG 09/18/16 2131: Anion Gap 17 H, Estimated GFR 36 L, BUN/Creatinine Ratio 30.0 H, Glucose 160 H, Lactic Acid 2.0, Calcium 8.9, Total Bilirubin 0.5, AST 25, ALT 27, Alkaline Phosphatase 59, Troponin I < 0.01, Total Protein 7.9, Albumin 4.6, Globulin 3.3, Albumin/Globulin Ratio 1.4, Lipase 452 H, CBC w Diff MAN DIFF ORDERED, RBC 3.83 L, MCV 89.7, MCH 30.2, RDW 14.1, MPV 8.2, Gran % 92.1 H, Lymphocytes % 3.2 L, Monocytes % 4.2, Eosinophils % 0.2, Basophils % 0.3, Absolute Granulocytes 6.6 H, Segmented Neutrophils 73, Band Neutrophils 18 H, Absolute Lymphocytes 0.2 L , Lymphocytes 6 L, Monocytes 2, Absolute Monocytes 0.3, Absolute Eosinophils 0, Basophils 1, Absolute Basophils 0, Platelet Estimate ADEQUATE, Normocytic RBCs VERIFIED, Normochromic RBCs VERIFIED, PUBS MCHC 33.7 Microbiology 09/19 124 NASOPHARYN: Influenza Virus A & B Rapid Smear - COMP 09/18 2224 URINE ROUT: Legionella Antigen - COMP 09/18 2224 URINE ROUT: Streptococcus pneumoniae Antigen (M - COMP Microbiology Date/Time Procedure - Status Source Growth 09/19 124 Influenza Virus A & B Rapid Smear - COMP NASOPHARYN 09/18 2348 Legionella Antigen - CAN URINE ROUT Cancelled: COMBINED WITH [id number] 09/18 2348 Respiratory Culture - CAN LOWER RESP Cancelled: NO SAMPLE COLLECTED 09/18 2348 Gram Stain - CAN LOWER RESP Cancelled: NO SAMPLE COLLECTED 09/18 2348 Clostridium difficile Toxin A & B - CAN STOOL Cancelled: NO SAMPLE COLLECTED 09/18 2348 Stool Culture - CAN STOOL Cancelled: NO SAMPLE COLLECTED 09/18 2254 Blood Culture - RES BLOOD 09/18 2224 Legionella Antigen - COMP URINE ROUT 09/18 2224 Streptococcus pneumoniae Antigen (M - COMP URINE ROUT 09/18 2224 Urine Culture - RES URINE ROUT 09/18 2130 Blood Culture - RES BLOOD
[2016-09-19 22:34] VITALS: BP 102/58
[2016-09-20 07:28] VITALS: BP 98/57
[2016-09-20 08:05] LABS: ABSOLUTE BASOPHIL COUNT 0 /CUMM (0.0-0.2); ABSOLUTE EOSINOPHIL COUNT 0.4 /CUMM (0.0-0.7); ABSOLUTE GRANULOCYTE CT 2.2 /CUMM (1.4-6.5); ABSOLUTE LYMPH COUNT 1.7 /CUMM (1.2-3.4); ABSOLUTE MONOCYTE COUNT 0.5 /CUMM (0.10-0.60); BASOPHIL % 0.6 % (0.0-2.0); EOSINOPHIL % 9.2 % (0-5); HEMATOCRIT 29.5 % (37-47); MEAN CORPUSCULAR HGB CONC 33.5 G/DL (33.0-37.0); MEAN CORPUSCULAR VOLUME 89.4 FL (81.0-99.0); MEAN PLATELET VOLUME 8.9 FL (7.4-10.4); PLATELET COUNT 212 /CUMM (130-400); RBC DISTRIBUTION WIDTH 13.9 % (11.5-14.5); WHITE BLOOD CELL COUNT 4.8 /CUMM (4.8-10.8)
--- NOTE | 2016-09-20 08:07 | PN- Housestaff ---
Subjective Follow-up For: Gastroenteritis Subjective: Patient seen and examined. She is seen lying on her side in bed resting comfortably. She appears to be in no acute distress. At her bedside are her and daughter whom are up to date with patients medical condition and offer translation to patient as she is not a rosebud martiniquais speaker. She reports that she feels mildly bettter today as her nausea has resolved, however she does admit to some abdominal pain that she attributes to vomiting. She is eager to try a more full diet for lunch. Otherwise she denies any fever, chills, chest pain, palpitations, shortness of breath, cough, persistent nausea, further vomiting, or diarrhea. No overnight events reported. Review of Systems Constitutional: Reports: see HPI. Objective Last 24 Hrs of Vital Signs/I&O Vital Signs Date Time Temp Pulse Resp B/P B/P Pulse O2 O2 Flow FiO2 Mean Ox Delivery Rate 09/20 1053 68 108/78 09/20 0847 80 110/70 09/20 0728 97.6 60 20 98/57 95 Room Air 09/19 2234 98.2 66 20 102/58 94 Room Air 09/19 1409 97.8 66 20 108/64 94 Room Air Intake & Output 09/20 1600 09/20 0800 09/20 0000 Intake Total 120 240 Output Total Balance 120 240 Intake, Oral 120 240 Physical Exam General Appearance: Alert, Oriented X3, Cooperative, No Acute Distress Other Physical Findings: General -well-developed, well-nourished elderly woman in no acute distress HEENT - NCAT, PERRL, EOMI, anicteric sclera Cardio - S1, S2 w/o murmurs/gallops/rubs Resp - CTA bilaterally w/o wheezing/rhochi/crackles GI - soft, nontender, nondistended, bowel sounds present Neuro - Awake and alert, CN II - XII grossly intact Extremities - no edema, pulses intact Current Medications: Current Medications Sig/Camila Start time Last Medication Dose Route Stop Time Status Admin Acetaminophen 650 MG Q6P PRN 09/18 2345 AC PO Amitriptyline HCl 10 MG AT BEDTIME 09/19 220 AC 09/19 PO 2250 Aspirin 81 MG DAILY 09/19 1000 AC 09/20 PO 1053 Atorvastatin Calcium 20 MG DAILY 09/19 1000 AC 09/20 PO 1053 Azithromycin 500 MG 09/19 CAN Sodium Chloride 250 ML IV Ceftriaxone Sodium 1,000 MG 09/19 2200 AC 09/19 IV 2248 Dextrose/Sodium 1,000 ML ONCE ONE 09/18 2345 DC 09/19 Chloride IV 09/19 1304 0126 Gabapentin 300 MG TID 09/18 2359 AC 09/20 PO 1053 Heparin Sodium 5,000 UNIT Q8 09/19 0600 AC 09/20 (Porcine) SC 0437 Hydrochlorothiazide 12.5 MG DAILY 09/20 1000 AC 09/20 PO 1053 Ibuprofen 600 MG Q6P PRN 09/18 2345 AC PO Insulin Human Regular 0 TIDAC/HS 09/19 2100 AC 09/19 SC 2247 Insulin Human Regular 0 Q6 09/18 2359 DC 09/19 SC 1155 Losartan Potassium 50 MG DAILY 09/19 1000 AC 09/19 PO 1019 Morphine Sulfate 1 MG Q6P PRN 09/18 2345 AC IV Ondansetron HCl 4 MG Q6P PRN 09/18 2345 AC IV Pantoprazole Sodium 40 MG DAILY 09/19 1000 AC 09/20 IV 1053 Patient Medication 1 ED .STK-MED ONE 09/19 1359 RI Teaching ED 09/19 1400 Last 24 Hrs of Lab/Facundo Results Last 24 Hrs of Labs/Mics: Laboratory Tests 09/20/16 0617: Anion Gap 12, Estimated GFR 48 L, BUN/Creatinine Ratio 21.8, CBC w Diff NO MAN DIFF REQ, RBC 3.30 L, MCV 89.4, MCH 30.0, RDW 13.9, MPV 8.9, Gran % 46.0, Lymphocytes % 34.6, Monocytes % 9.6 H, Eosinophils % 9.2 H, Basophils % 0.6, Absolute Granulocytes 2.2, Absolute Lymphocytes 1.7, Absolute Monocytes 0.5, Absolute Eosinophils 0.4, Absolute Basophils 0, PUBS MCHC 33.5 Assessment/Plan Assessment: 81-year-old woman with a PMH significant for DM, HTN, HLD, and acute diverticulitis (2010), who presents with abdominal pain with emesis and watery diarrhea since 4-5PM on the day of admission. 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 She is eager to have a more full diet later today and will be transitioned from a clear to full liquid diet for lunch. She will discharged later today pending that she does well with her lunch with instruction to follow-up with her primary care provider after discharge. Problem list: -Viral gastroenteritis -Acute on chronic CKD -Wzj-qvkeihj-ljybnwmhp diabetes mellitus -Hypertension -Hyperlipidemia Plan: -Gen. medicine -Antiemetics -Intravenous fluids -Advance diet to full liquid diet, DC if she tolerates -NovoLog sliding scale insulin -continue home meds -DVT prophylaxis -Full code Problem List: 1. Gastroenteritis Pain Ratin Pain Location: Abdomen Pain Goal: Pain 4 or less Pain Plan: See assessment Tomorrow's Labs & Rationales: None
--- NOTE | 2016-09-20 08:45 | PN- Att Addend ---
Attending Addendum Attending Brief Note Attending note. Patient is comfortable in no acute distress. Intake & Output 09/20 1600 09/20 0800 09/20 0000 Intake Total 120 240 Output Total Balance 120 240 Intake, Oral 120 240 Vital Signs Date Time Temp Pulse Resp B/P B/P Pulse O2 O2 Flow FiO2 Mean Ox Delivery Rate 09/21 727 97.6 60 20 98/57 95 Room Air 09/19 2234 98.2 66 20 102/58 94 Room Air 09/19 1409 97.8 66 20 108/64 94 Room Air 09/19 0914 Room Air Room Air 09/19 0912 96 Room Air Intake & Output 09/20 1600 09/20 0800 09/20 0000 Intake Total 120 240 Output Total Balance 120 240 Intake, Oral 120 240 On examination Patient is awake alert oriented Conjunctivae is pink sclerae anicteric S1-S2 is normal Lungs air entry equal bilaterally no crepitations or rhonchi Abdomen is soft nontender bowel sounds are present Extremities are normal no calf tenderness no redness and erythema. Laboratory Tests 09/20 616 Chemistry Sodium (137 - 145 mmol/L) 146 H Potassium (3.5 - 5.1 mmol/L) 4.1 Chloride (98 - 107 mmol/L) 109 H Carbon Dioxide (22 - 30 mmol/L) 24 Anion Gap (5 - 16) 12 BUN (7 - 17 mg/dL) 24 H Creatinine (0.5 - 1.0 mg/dL) 1.1 H Estimated GFR (>60 ml/min) 48 L BUN/Creatinine Ratio (7 - 25 %) 21.8 Hematology CBC w Diff NO MAN DIFF REQ WBC (4.8 - 10.8 /CUMM) 4.8 RBC (4.20 - 5.40 /CUMM) 3.30 L Hgb (12.0 - 16.0 G/DL) 9.9 L Hct (37 - 47 %) 29.5 L MCV (81.0 - 99.0 FL) 89.4 MCH (27.0 - 31.0 PG) 30.0 RDW (11.5 - 14.5 %) 13.9 Plt Count (130 - 400 /CUMM) 212 MPV (7.4 - 10.4 FL) 8.9 Gran % (42.2 - 75.2 %) 46.0 Lymphocytes % (20.5 - 51.1 %) 34.6 Monocytes % (1.7 - 9.3 %) 9.6 H Eosinophils % (0 - 5 %) 9.2 H Basophils % (0.0 - 2.0 %) 0.6 Absolute Granulocytes (1.4 - 6.5 /CUMM) 2.2 Absolute Lymphocytes (1.2 - 3.4 /CUMM) 1.7 Absolute Monocytes (0.10 - 0.60 /CUMM) 0.5 Absolute Eosinophils (0.0 - 0.7 /CUMM) 0.4 Absolute Basophils (0.0 - 0.2 /CUMM) 0 PUBS MCHC (33.0 - 37.0 G/DL) 33.5 Assessment Assessment: 81-year-old woman with a PMH significant for DM, HTN, HLD, and acute diverticulitis (2010), who presents with abdominal pain with emesis and watery diarrhea since 4-5PM on the day of admission. 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 Physical therapy ambulation is stable possible discharge tomorrow.
[2016-09-20 08:47] VITALS: BP 110/70
[2016-09-20 14:32] VITALS: BP 129/72
--- NOTE | 2016-09-20 17:03 | Patient Discharge Instructions ---
Discharge Instructions General Discharge Information Special Instructions: Follow up with your primary care provider after discharge. Eat light foods such as bananas, rice, applesauce, or toast should your nausea return. Call 911 or return to the ED should your symptoms worsen or if you develop a fever. Acute Coronary Syndrome Inclusion Criteria At DC or during hospital stay patient has or had the following: ACS DIAGNOSIS No Discharge Core Measures Meds if any: Prescribed or Continued at Discharge Meds if any: NOT Prescribed or Continued at Discharge Congestive Heart Failure Inclusion Criteria At DC or during hospital stay patient has or had the following: CHF DIAGNOSIS No Discharge Core Measures Meds if any: Prescribed or Continued at Discharge Meds if any: NOT Prescribed or Continued at Discharge Cerebrovascular accident Inclusion Criteria At DC or during hospital stay patient has or had the following: CVA/TIA Diagnosis No Discharge Core Measures Meds if any: Prescribed or Continued at Discharge Meds if any: NOT Prescribed or Continued at Discharge Venous thromboembolism Inclusion Criteria VTE Diagnosis No VTE Type NONE VTE Confirmed by (Test) NONE Discharge Core Measures - Per Current guidelines, there needs to be overlap - treatment for the first 5 days of Warfarin therapy. - If discharged on Warfarin prior to 5 days of - overlap therapy, the patient will need to be - assessed for post discharge needs including - *Post discharge parental anticoagulation - *Warfarin and/or parental anticoagulation education - *Follow up date to check INR post discharge At least 5 days overlap therapy as Inpatient No Meds if any: Prescribed or Continued at Discharge Note: Overlap Therapy is Warfarin and Anticoagulant Meds if any: NOT Prescribed or Continued at Discharge
--- NOTE | 2016-09-26 13:07 | Discharge Summary ---
Visit Information Visit Dates Admission Date: 09/18/16 Discharge Date: 09/20/16 Hospital Course Course Attending Physician: SHARMILA TIM MD Primary Care Physician: SHARMILA TIM MD Hospital Course: 81-year-old white female came into the hospital with several hours of abdominal pain nausea vomiting and watery diarrhea was evaluated at blood work CT scan of abdomen, she was gently hydrated given treatment for the nausea and vomiting and she quickly improved to the point she was stable to be discharged on September 20 Complications: None Allergies: Coded Allergies: NO KNOWN ALLERGIES (10/28/15) Significant Procedures: SERVICE DATE: 09/18/16 EXAM TYPE: RAD - [id number] VIEWS Indication: Nausea vomiting EXAMINATION: 2 views of the abdomen Flat and upright imaging. SERVICE DATE: 09/18/16 EXAM TYPE: RAD - XRY-CHEST XRAY, PA AND LATERAL EXAMINATION: XR CHEST CLINICAL INFORMATION: Wheezing, chills COMPARISON: 04/17/2016 TECHNIQUE: 2 views of the chest were obtained. FINDINGS: Exam demonstrating opacity at the right base.... Density here previously. This may be an acute infiltrate superimposed on chronic change. Left lung is grossly clear. Heart size is normal. IMPRESSION: Vague opacity at the right base may be an infiltrate. Superimposed on chronic change. Follow-up films recommended after treatment to assess for baseline. There is no free air. The bowel pattern is nonobstructing. IMPRESSION: No free air or obstruction. A chest x-rays also ordered on this patient. Recommend patient return for formal chest x-ray SERVICE DATE: 09/18/16 EXAM TYPE: CAT - CT ABD & PELVIS W/O IV CONTRAS EXAMINATION: CT ABDOMEN AND PELVIS WITHOUT CONTRAST CLINICAL INFORMATION: History of diverticulosis. Evaluate for diverticulitis versus colitis versus pancreatitis. COMPARISON: CT scan of abdomen and pelvis 10/23/2015. TECHNIQUE: Multidetector volumetric imaging was performed from the superior aspect of the liver through the pubic symphysis. Sagittal and coronal reformatted images were obtained on the technologist's workstation. DLP: 414.19 mGy-cm FINDINGS: LUNG BASES: There is bibasilar subsegmental atelectasis. No pleural or pericardial effusion. The heart is enlarged. LIVER, GALLBLADDER, AND BILIARY TREE: The unenhanced liver attenuation is homogeneous and there is no evidence of a discrete hepatic parenchymal mass. The gallbladder is surgically absent and there are numerous surgical clips within the gallbladder fossa. No evidence of intrahepatic or extrahepatic biliary ductal dilatation. PANCREAS: Unremarkable. SPLEEN: Unremarkable. ADRENAL GLANDS: Unremarkable. KIDNEYS AND URETERS: Kidneys are symmetric in size and there is no abnormal perinephric inflammation or collection. No hydroureteronephrosis. No nephrolithiasis and no abnormal mass or calcifications visualized along the expected course of the right or left ureters. BLADDER: Unremarkable. GASTROINTESTINAL TRACT: There is a small hiatal hernia. The stomach and small bowel are otherwise unremarkable. There is slightly increased attenuation within the mesenteric fat with a few scattered small nonspecific mesenteric lymph nodes for instance best illustrated on axial image 43 of 91 series 2. There is no free intraperitoneal air or fluid. The appendix is normal. Numerous diverticula are visualized primarily within the sigmoid colon. No evidence of acute diverticulitis. ABDOMINAL WALL: No significant hernia is appreciated. LYMPH NODES: No pathologically enlarged mesenteric or retroperitoneal lymph nodes. VASCULAR: Calcified atheromatous plaque is visualized within the abdominal aorta and iliac vessels. The unenhanced inferior vena cava is unremarkable. PELVIC VISCERA: The uterus is surgically absent. No worrisome adnexal mass. OSSEOUS STRUCTURES: There is no worrisome lytic or blastic osseous lesion. There is advanced multilevel degenerative spondylosis of the lumbar spine with loss of intervertebral disc height, sclerotic degenerative endplate changes, and intervertebral vacuum disc phenomenon at multiple levels. Grade 1 anterolisthesis of L5 on S1 related to advanced facet degenerative changes at this level. Grossly no evidence of canal compromised. IMPRESSION: There is regionally increased attenuation within the mesenteric fat which is associated with a few scattered nonspecific mesenteric lymph nodes. 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 Otherwise there is no discrete abdominal finding to provide an expiration for the patient's abdominal pain. No evidence of acute diverticulitis. The pancreas is normal. No free intraperitoneal air or fluid. Pertinent Lab Results: 09/18/16 2309: Troponin I Cancelled 09/18/162224: Urine Color YEL, Urine Clarity CLEAR, Urine pH 6.0, Ur Specific [place] 1.015, Urine Protein TRACE H, Urine Ketones NEG, Urine Nitrite NEG, Urine Bilirubin NEG, Urine Urobilinogen 0.2, Ur Leukocyte Esterase NEG, Ur Microscopic SEDIMENT EXAMINED, Ur Epithelial Cells RARE, Urine Hemoglobin NEG, Urine Glucose NEG 09/18/162130: Anion Gap 17 H, Estimated GFR 36 L, BUN/Creatinine Ratio 30.0 H, Glucose 160 H, Lactic Acid 2.0, Calcium 8.9, Total Bilirubin 0.5, AST 25, ALT 27, Alkaline Phosphatase 59, Troponin I Pending, Total Protein 7.9, Albumin 4.6, Globulin 3.3 , Albumin/Globulin Ratio 1.4, Lipase 452 H, CBC w Diff MAN DIFF ORDERED, RBC 3.83 L, MCV 89.7, MCH 30.2, RDW 14.1, MPV 8.2, Gran % 92.1 H, Lymphocytes % 3.2 L, Monocytes % 4.2, Eosinophils % 0.2, Basophils % 0.3, Absolute Granulocytes 6.6 H, Segmented Neutrophils 73, Band Neutrophils 18 H, Absolute Lymphocytes 0.2 L, Lymphocytes 6 L, Monocytes 2, Absolute Monocytes 0.3, Absolute Eosinophils 0, Basophils 1, Absolute Basophils 0, Platelet Estimate ADEQUATE, Normocytic RBCs VERIFIED, Normochromic RBCs VERIFIED, PUBS MCHC 33.7 Microbiology 09/18 2255 BLOOD: Blood Culture - RECD 09/18 2224 URINE ROUT: Urine Culture - RECD 09/18 2130 BLOOD: Blood Culture - RECD Laboratory Tests 09/19/16 0620: Anion Gap 12, Estimated GFR 40 L, BUN/Creatinine Ratio 29.2 H, CBC w Diff NO MAN DIFF REQ, RBC 3.10 L, MCV 89.7, MCH 30.1, RDW 13.8, MPV 8.9, Gran % 80.7 H , Lymphocytes % 11.1 L, Monocytes % 6.1, Eosinophils % 1.9, Basophils % 0.2, Absolute Granulocytes 5.0, Absolute Lymphocytes 0.7 L, Absolute Monocytes 0.4, Absolute Eosinophils 0.1, Absolute Basophils 0, PUBS MCHC 33.5 09/18/16 2346: Lactic Acid 1.6 09/18/16 2309: Troponin I Cancelled 09/18/162224: Urine Color YEL, Urine Clarity CLEAR, Urine pH 6.0, Ur Specific [place] 1.015, Urine Protein TRACE H, Urine Ketones NEG, Urine Nitrite NEG, Urine Bilirubin NEG, Urine Urobilinogen 0.2, Ur Leukocyte Esterase NEG, Ur Microscopic SEDIMENT EXAMINED, Ur Epithelial Cells RARE, Urine Hemoglobin NEG, Urine Glucose NEG The urine and blood cultures were negative the flu rapid flu was negative Disposition Summary Disposition Principal Diagnosis: Abdominal pain nausea vomiting watery diarrhea secondary to viral gastroenteritis Acute on chronic kidney disease Additional Diagnosis: Diabetes mellitus Chronic kidney disease Hypertension Hyperlipidemia Showed diverticulitis Discharge Disposition: home or self care Discharge Instructions General Discharge Information Code Status: Full Code Patient's Diet: Healthy heart Patient's Activity: As tolerated Follow-Up Instructions/Appts: Follow-up with Dr. Tim Medications at Discharge Discharge Medications: Continue taking these medications: Amitriptyline HCl (Amitriptyline HCl) 10 MG TABLET 1 Tablet ORAL TAKE AT BEDTIME Comments: Last Taken: 09/19/16 Time: 11:00 PM Aspirin (Children's Aspirin) 81 MG TAB.CHEW 1 Tablet ORAL DAILY Comments: Last Taken: 09/20/16 Time: 11:00 AM Tramadol HCl (Ultram) 50 MG TABLET 1 Tablet ORAL EVERY SIX HOURS NEEDED Comments: NOT GIVEN IN HOSPITAL Ibandronate Sodium (Boniva) 150 MG TABLET 1 Tablet ORAL ONCE A MONTH Instructions: on the same date with a full glass of water at least 30 minutes before first food or drink of the day; remain in an upright posi Comments: NOT GIVEN IN HOSPITAL Zolpidem Tartrate (Ambien) 5 MG TABLET 1 Tablet ORAL Every night Comments: NOT GIVEN IN HOSPITAL Atorvastatin Calcium (Atorvastatin Calcium) 20 MG TABLET 1 Tablet ORAL DAILY Qty = 90 Comments: Last Taken: 09/20/16 Time: 11:00 AM Calcium Carbonate/Vitamin D3 (Os-Yinka 500+D3 Caplet) (Unknown Strength) TABLET Unknown Dose ORAL TWICE DAILY Comments: NOT GIVEN IN HOSPITAL Cyanocobalamin (Vitamin B-12) 1,000 MCG TABLET 2 Tablet ORAL DAILY Qty = 60 Comments: NOT GIVEN IN HOSPITAL Metformin HCl (Metformin HCl) 500 MG TABLET 1 Tablet ORAL TWICE DAILY Qty = 180 Comments: NOT GIVEN IN HOSPITAL Olmesartan/Hydrochlorothiazide (Benicar Hct 20-12.5 MG Tablet) 20 MG-12.5 MG TABLET 1 Tablet ORAL DAILY Qty = 30 Comments: NOT GIVEN IN HOSPITAL Gabapentin (Gabapentin) 300 MG CAPSULE 1 Capsule ORAL THREE TIMES DAILY Qty = 270 Comments: Last Taken: 09/20/16 Time: 5:00 PM Copies To: SHARMILA TIM MD Attending Review Statement Documenting Attending: SHARMILA TIM MD
== END 2016-09-20 17:56 | DRG 392 ==
LOC: ERH 20:01 → 2NB 22:16 → ERHI 22:16 → ENRESERV 23:25 → 2NB 09-19 00:08
PROVIDERS: Emergency Medicine; Internal Medicine; ADMIT Internal Medicine
DX: K52.9 Noninfective gastroenteritis and colitis, unspecified (principal); N17.9 Acute kidney failure, unspecified; E86.0 Dehydration; E11.9 Type 2 diabetes mellitus without complications; Z79.84 Long term (current) use of oral hypoglycemic drugs; N18.9 Chronic kidney disease, unspecified; I10 Essential (primary) hypertension; E78.5 Hyperlipidemia, unspecified
CPT/HCPCS: 2NBP; ERO; 36415; 74020; 74176; 81001; 82436; 87040; 87045; 87070; 87086; 87449; 87450; 87804; 87804-59; 93005; 93010; 96374; 96375; J0456; J0696; J1644; J1815; J2765; J3490; J7040; J7042